=== PATIENT | female | born 1975 | race Caucasian/White ===

== ENCOUNTER 2024-03-05 17:56 | Emergency (ER) | payer OTHER, SELFPAY ==
--- NOTE | ~2024-03-05 | CT_ITS ---
EXAMINATION: CT SOFT TISSUE NECK WITH CONTRAST CLINICAL INFORMATION: Deep neck abscess. Unable to open mouth. Dysphagia. COMPARISON: CT chest from 10/29/2016. TECHNIQUE: Multidetector helical imaging was performed in the axial plane following the administration of 60 mL of Omnipaque 350 intravenous contrast. Multiple axial reformats and coronal/sagittal reconstructions were created the technologist workstation for review. This CT examination was performed using dose optimization techniques as appropriate, variously including the following: *Automated exposure control. *Adjustment of mA and/or kV according to patient size (this includes techniques or standardized protocols for targeted exams where dose is matched to indication/reason for exam; i.e. extremities or head). *Use of iterative reconstruction technique. DLP: 338 mGy-cm FINDINGS: No significant cutaneous thickening or subcutaneous inflammation. No discrete fluid collection within the deep tissues of the neck. The premaxillary, retromaxillary, pterygopalatine fossa, orbital apical, parapharyngeal, and prelaryngeal adipose tissue is maintained. Atrophy of the right greater than left parotid glands. Normal appearance of the subarticular glands. Prior partial right thyroidectomy. Otherwise, normal appearance of the thyroid gland. Scattered subcentimeter lymph nodes bilaterally, none of which are pathologically enlarged or abnormally enhancing. Normal mucosal contours of the pharynx and larynx without abnormal enhancement. Normal appearance of the hyoid bone, thyroid cartilage, or cartilaginous trachea. The airways remains widely patent. No radiopaque foreign bodies. Left-sided atlantooccipital assimilation. The right atlantooccipital articulation remain well aligned. Moderate arthropathy of the right atlantooccipital articulation. Straightening of the normal cervical lordosis. 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 No evidence of acute fracture or subluxation of the cervical spine. The vertebral body heights are maintained. The intervertebral disc spaces are maintained. No evidence of epidural collection. There is no prevertebral soft tissue swelling. Normal opacification of the cervical arterial and venous structures. The visualized portion of the skull base is without significant abnormalities. Mild mucosal thickening of the paranasal sinuses. Hypoplastic external auditory canals bilaterally. The middle ear cavities are also underdeveloped and partially opacified. The inner ear structures are normal in appearance. No demonstrated significant periapical odontogenic disease. CT Upper Chest: Chronic scarring in the posterior aspect of the left upper lobe. Otherwise, the visualized lung apices and upper mediastinum are within normal limits. CT/CT soft tissue neck w IV con IMPRESSION: 1. No demonstrated focal lesion, collection, lymphadenopathy, or abnormal enhancement within the soft tissues of the neck. 2. 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 3. Hypoplastic external auditory canals bilaterally. The middle ear cavities are also underdeveloped and partially opacified. Electronically signed by: Steven Landry DO 03/05/2024 11:29 PM EDT
[2024-03-05 18:14] VITALS: BP 148/89; PULSE 100; RESP 19; TEMP 37.2; O2SAT 98; BMI 24.7
--- NOTE | 2024-03-05 18:14 | ED.GENADULT ---
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 No fever no chills Related Data Allergies Allergy/AdvReac Type Severity Reaction Status Date / Time No Known Allergies Allergy Verified 03/05/24 18:17 [No Known Allergies*] Review of Systems Review of Systems: Yes all other systems are reviewed and are negative [facility] Social History Social History Advance Directives: No Advance Directives Information Provided: No Do you have a plan to hurt others: No Plan Physical Exam ED Vital Signs: Vital Signs - 24 hr 03/05/24 18:14 03/06/24 00:12 Temperature 98.9 F 98.9 F Pulse Rate 100 100 Respiratory Rate 19 19 Blood Pressure 148/89 H 148/89 H Pulse Oximetry 98 98 Oxygen Delivery Method Room Air Room Air BMI result Body Mass Index 24.7 Appearance: Alert. Oriented X3. No acute distress. Eyes: PERRLA, No Nystagmus ENT: Pharynx normal. Oral Mucosa moist on left lower molar with filling in place no gum swelling no crepitus Neck: Normal inspection. Neck supple. CVS: Normal heart rate and rhythm. Pulses normal. Respiratory: No respiratory distress. Equal air entry bilateral, no wheezing/rales/rhonchi Abdomen: Soft and nontender. Bowel sounds are present, no mass palpable, no CVA tenderness Skin: Skin warm and dry. Normal skin color. Normal skin turgor. Extremities: No lower extremity edema. No calf tenderness Neuro: Oriented X 3. No motor deficit. Course Course Course Narrative: RME performed by Aditi Darnell PA-C. Patient is a 48 year old assigned female at presenting to the emergency department with a left sided neck infection. Patient states that she was having left lower dental pain for over a week and had a root canal done. At that time, they told her she has a dental infection and started her on antibiotics (03/03/2024). Patient states that the infection has now traveled down her throat and is making it difficult to swallow. Detailed physical exam and review of systems are deferred to the primary operator. Labs ordered. Patient placed back in the waiting room pending room availability and results. Medications Administered Discontinued Medications Generic Name Dose Route Start Last Admin Trade Name Elijah PRN Reason Stop Dose Admin Iohexol 60 ml 03/05/24 21:29 03/05/24 21:29 Iohexol 350 Mg/Ml 100 Ml Infus..Btl IV 03/05/24 21:30 60 ml ONCE ONE Administration Ketorolac Tromethamine 30 mg 03/05/24 20:39 03/05/24 20:57 Ketorolac Tromethamine 30 Mg/Ml Vial IVPUSH 03/05/24 20:40 30 mg ONCE ONE Administration Medical Decision Making Medical Decision Making [facility] Narrative: Patient with throat pain difficult to swallow after root canal CT scan done which negative for any fluid collection or air discharge patient home advised to continue clindamycin follow with dentist Lab Data [facility] Lab Attestation statement: I reviewed the patient's lab results. 03/05/24 18:47 03/05/24 18:47 Labs: Lab Results 03/05/24 Range/Units 18:47 WBC 7.9 (4.8-10.8) X10*3/uL RBC 4.10 L (4.20-5.50) X10*6/uL Hgb 12.7 (12.0-16.0) g/dl Hct 38.5 (37.0-47.0) % MCV 93.9 (80.0-98.0) fL MCH 31.0 (27.0-33.0) pg MCHC 33.0 (31.0-35.0) g/dl RDW 12.0 (11.0-16.0) % Plt Count 309 (160-400) X10*3/uL MPV 8.6 L (9.4-12.3) fL Immature Gran % (Auto) 0.3 (0.0-0.4) % Neut % (Auto) 65.0 (45-73) % Lymph % (Auto) 18.8 L (20-40) % Bradley % (Auto) 13.0 H (2-11) % Eos % (Auto) 2.4 (0-4) % Baso % (Auto) 0.5 (0-2) % Lymph # (Auto) 1.5 (1.2-4.9) X10*3/uL Bradley # (Auto) 1.0 (0.1-1.2) X10*3/uL Eos # (Auto) 0.2 (0.0-0.4) X10*3/uL Baso # (Auto) 0.0 (0.0-0.2) X10*3/uL Abs Immat Gran (auto) 0.02 (0.00-0.03) X10*3/uL Absolute Neuts (auto) 5.2 (2.0-8.3) x10*3/uL Absolute Nucleated RBC 0.000 (0.0-0.012) X10*3/uL Nucleated RBC % (auto) 0.0 (0.0-0.2) /100WBC ESR 48 H (0-20) MM/HR Sodium 142 (135-145) mmol/L Potassium 4.0 (3.3-5.1) mmol/L Chloride 103 (96-108) mmol/L Carbon Dioxide 27 (22-29) mmol/L Anion Gap 16 (12-20) BUN 9 (9-16) mg/dL Creatinine 0.71 (0.5-1.4) mg/dL Estim Creat Clear Calc 83.4 Estimated GFR > 60 Random Glucose 109 (60-115) mg/dL Calcium 10.8 H (8.4-10.2) mg/dL Magnesium 1.9 (1.6-2.6) mg/dL Total Bilirubin 0.4 (0.0-1.0) mg/dL AST 24 (5-31) U/L ALT 18 (0-31) U/L Alkaline Phosphatase 104 (39-117) U/L C-Reactive Protein 3.07 H (< or = 0.50) mg/dL Total Protein 8.6 H (6.5-8.0) g/dL Albumin 4.5 (3.5-5.0) g/dL Independent Interpretation I performed an independent interpretation of an: CT Scan Radiology Impression Discussion of test interpretation with radiology: I have reviewed the radiologist's reading. Radiologist Impression: CT/CT soft tissue neck w IV con IMPRESSION: 1. No demonstrated focal lesion, collection, lymphadenopathy, or abnormal enhancement within the soft tissues of the neck. 2. 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 3. Hypoplastic external auditory canals bilaterally. The middle ear cavities are also underdeveloped and partially opacified. Electronically signed by: Steven Landry DO 03/05/2024 11:29 PM EDT RP Discharge Plan Discharge Clinical Impression: Toothache Patient Disposition: Home, Self-Care Instructions: Toothache (ED) Additional Instructions: No infection or fluid collection seen in your throat in the CT scan Do gargles Continue antibiotic as prescribed by your dentist and follow up Interventions: ED Discharge Assessment Last Done: 03/06/24 00:12 Discharge Date/Time: 03/06/24 00:13 Print Language: Finnish
[2024-03-05 18:53] LABS: Basophils Percent Auto 0.5 % (0-2); Eosinophils Absolute Auto 0.2 X10*3/uL (0.0-0.4); Eosinophils Percent Auto 2.4 % (0-4); Hematocrit 38.5 % (37.0-47.0); Hemoglobin 12.7 g/dl (12.0-16.0); Imm Gran Abs Auto 0.02 X10*3/uL (0.00-0.03); Imm Gran Pct Auto 0.3 % (0.0-0.4); Lymphocytes Absolute Auto 1.5 X10*3/uL (1.2-4.9); Lymphocytes Percent Auto 18.8 % (20-40); MANUAL DIFF FLAG NO; Mean Corpuscular Volume 93.9 fL (80.0-98.0); Mean Platelet Volume 8.6 fL (9.4-12.3); Neutrophils Absolute Auto 5.2 x10*3/uL (2.0-8.3); Platelet Count 309 X10*3/uL (160-400); White Blood Count 7.9 X10*3/uL (4.8-10.8)
[2024-03-05 19:09] LABS: Alanine Aminotransferase 18 U/L (0-31); Albumin Level 4.5 g/dL (3.5-5.0); Alkaline Phosphatase 104 U/L (39-117); Anion Gap 16 (12-20); Aspartate Amino Transferase 24 U/L (5-31); Bilirubin Total 0.4 mg/dL (0.0-1.0); Blood Urea Nitrogen 9 mg/dL (9-16); C Reactive Protein 3.07 mg/dL (< or = 0.50); Calcium 10.8 mg/dL (8.4-10.2); Carbon Dioxide 27 mmol/L (22-29); Chloride 103 mmol/L (96-108); Creatinine Clr Calc Pharmacy 83.4; Estimated Glomerular Filt Rate > 60; Glucose Random 109 mg/dL (60-115); Magnesium 1.9 mg/dL (1.6-2.6); Sodium 142 mmol/L (135-145); Total Protein 8.6 g/dL (6.5-8.0)
[2024-03-05 19:38] LABS: Erythrocyte Sedimentation Rate 48 MM/HR (0-20)
[2024-03-05] MEDS: Ketorolac Tromethamine 30 MG/ML VIAL IVPUSH (20:57)
[2024-03-05] MEDS: iohexoL 350 MG/ML 100 ML INFUS..BTL 60 ML IV (21:29)
[2024-03-06 00:12] VITALS: BP 148/89; PULSE 100; RESP 19; TEMP 37.2; O2SAT 98
== END 2024-03-06 00:13 | disposition home or self-care (01) ==
PROVIDERS: Physician Assistant Medical; Emergency Provider Internal Medicine; PCP Nurse Practitioner Primary Care
DX: K08.89 Other specified disorders of teeth and supporting structures (principal); R13.10 Dysphagia, unspecified; M54.2 Cervicalgia; Z79.899 Other long term (current) drug therapy
CPT/HCPCS: 36415; 70491; 80053; 83735; 85025; 85652; 86140; 96374; 99283; 99284; J1885; Q9967